=== PATIENT | male | born 1960 | race Caucasian/White ===

== ENCOUNTER 2023-01-27 07:51 | Outpatient (REF) | payer OTHER, MEDICAID, SELFPAY ==
--- NOTE | ~2023-01-27 | CT_ITS ---
EXAMINATION: CT ANGIOGRAM ABDOMEN AND PELVIS WITH RUN-OFF CLINICAL INFORMATION: Peripheral arterial disease, claudication. COMPARISON: None TECHNIQUE: Multiple axial images were obtained through the abdomen, pelvis, and lower extremities following the administration of 100 mL of Omnipaque 350 intravenous contrast. Sagittal, coronal, and MIP oblique sagittal reformatted images were obtained on the CT workstation, uploaded to PACS, and reviewed. Images were evaluated on independent dedicated 3-D workstation and 3-D images were reconstructed with concurrent radiologist supervision and subsequently interpreted. This CT examination was performed using dose optimization techniques as appropriate, variously including the following: *Automated exposure control *Adjustment of mA and/or kV according to patient size (this includes techniques or standardized protocols for targeted exams where dose is matched to indication/reason for exam; i.e. extremities or head) *Use of iterative reconstruction technique DLP: 1190 mGy-cm FINDINGS: VASCULATURE: Aorta: Normal in caliber. Scattered calcified plaque without significant stenosis. Celiac axis is patent without significant stenosis. Calcified and noncalcified plaque seen in the proximal superior mesenteric artery with moderate stenosis. There is a moderate to severe stenosis at the ostium of the inferior mesenteric artery due to heavily calcified plaque. There were 2 right and 2 left renal arteries with mild atherosclerotic plaque. No significant stenosis Right iliac arteries: Common iliac, external iliac and internal iliac arteries demonstrates scattered atherosclerotic plaque without significant stenosis. Left iliac arteries: Common iliac demonstrates a irregular calcified plaque with mild stenosis. External iliac and internal iliac arteries are patent without significant stenosis. Right lower extremity: Common femoral artery demonstrates moderate atherosclerotic plaque without significant stenosis. Heavily calcified plaque extends into the ostium of the superficial femoral artery with underlying severe stenosis. There is a moderate to severe stenosis at the ostium of the profunda femoral artery. Scattered calcified plaque is seen in the proximal to mid superficial femoral artery without significant stenosis. Heavily calcified plaque is seen in the distal superficial femoral artery extending through the adductor canal. Additional vascular stent is is seen in the distal superficial femoral artery extending through the adductor canal. Stent is patent. There is a moderate stenosis just proximal to the stent. Heavily calcified plaque is seen just distal to the stent causing a severe stenosis. Popliteal artery demonstrates scattered calcified plaque without significant stenosis. Calcified plaque is seen in the posterior tibial artery without significant stenosis. There is short segment occlusion in the proximal peroneal artery with reconstituted flow is seen in the mid calf. There is occlusion of the anterior tibial artery within the proximal to mid calf Left lower extremity: Common femoral artery demonstrates postsurgical changes without significant stenosis. Superficial femoral artery demonstrates scattered calcified and noncalcified plaque without significant stenosis. Heavily calcified plaque is seen within the P2 segment of the popliteal artery is causing underlying severe stenosis. Calcified plaque is seen in the posterior tibial artery without significant stenosis. There is occlusion in the mid to distal peroneal artery. There is occlusion of the anterior tibial artery within the proximal to mid calf NONVASCULAR: Lung bases are clear. Solid abdominal organs are unremarkable. Bowel loops are unremarkable. No free fluid seen in the abdomen and pelvis. Urinary bladder is unremarkable. No pathologic lymphadenopathy or mass lesion seen in the abdomen and pelvis. Osseous structures are intact. CT/CT angio abd aorta runoff IMPRESSION: 1. Heavily calcified plaque at the ostium of the right superficial femoral artery with underlying severe stenosis. Moderate to severe stenosis at the ostium of the right profunda femoral artery. 2. Patent stent in the distal right superficial femoral artery. There is a moderate stenosis just proximal to the stent. Heavily calcified plaque is seen just distal to the stent causing a severe stenosis. Single vessel runoff seen in the right posterior tibial artery. 3. Heavily calcified plaque in the P2 segment of the left popliteal artery causing underlying severe stenosis. Occlusion of the left anterior tibial and peroneal arteries. Single vessel runoff seen in the left posterior tibial artery. 4. Moderate stenosis in the superior mesenteric artery and moderate to severe stenosis of the inferior mesenteric artery.
[2023-01-27] MEDS: iohexoL 350 MG/ML 100 ML INFUS..BTL IV (08:52)
[2023-01-27 09:31] LABS: Creatinine POC 1.1 mg/dL (0.5-1.4); GFR POC > 60
== END 2023-01-27 07:52 | disposition home or self-care (01) ==
LOC: HO.CT 07:51
PROVIDERS: Visit Provider Surgery
DX: I73.9 Peripheral vascular disease, unspecified (principal)
CPT/HCPCS: 75635; 82565; Q9967